=== PATIENT | male | born 1950 | race Caucasian/White ===

== ENCOUNTER 2017-08-10 16:16 | Emergency (ER) | payer MEDICARE, BC ==
[2017-08-10 16:20] VITALS: BP 131/80
[2017-08-10] MEDS ORDERED: Lidocaine 1% 20 ML MDV ONE (16:37)
[2017-08-10] MEDS ORDERED: Bacitracin/Neomycin/Polymyxin B Oint 0.9 GM U/D Packet ONE (16:47)
--- NOTE | 2017-08-10 16:51 | EDM.PDOC ---
ED HPI GENERAL MEDICAL PROBLEM - General Chief Complaint: Upper Extremity Injury/Pain Stated Complaint: "piece of wood in right hand" Time Seen by Provider: 08/10/17 16:40 Source of Information: Reports: Patient History Limitations: Reports: No Limitations - History of Present Illness INITIAL COMMENTS - FREE TEXT/NARRATIVE: Patient presents with concerns of a large sliver in his hand. Was working outside, caught the wood piece in his hand. Was able to remove a small portion but the remainder broke off. Is causing a mild amount of discomfort. Does believe his last tetanus was approximately 4-5 years ago. Onset: Today, Sudden Duration: Hour(s): Location: Reports: Upper Extremity, Right Quality: Reports: Throbbing Severity: Mild - Related Data Allergies Allergy/AdvReac Type Severity Reaction Status Date / Time amoxicillin Allergy Diarrhea Verified 08/10/17 16:20 azithromycin Allergy Rash Verified 08/10/17 16:20 cephalexin Allergy Diarrhea Verified 08/10/17 16:20 clavulanic acid Allergy Bleeding Verified 08/10/17 16:20 [From Augmentin] levofloxacin Allergy Muscle Verified 08/10/17 16:20 Weakness venlafaxine Allergy Chest Pain Verified 08/10/17 16:20 Home Meds: Home Meds Albuterol Sulfate [Proair Hfa] 2 puff INH DAILY PRN 07/30/16 [History] Allopurinol [Zyloprim] 300 mg PO DAILY 07/30/16 [History] Ezetimibe [Zetia] 10 mg PO DAILY 07/30/16 [History] Hydrochlorothiazide 25 mg PO ACBREAKFAST PRN 07/30/16 [History] Lisinopril 10 mg PO DAILY 07/30/16 [History] Olopatadine [Patanol 0.1% Ophth Soln] 1 drop EYEBOTH DAILY 07/30/16 [History] Past Medical History HEENT History: Reports: Other (See Below) Other HEENT History: DRY EYES Cardiovascular History: Reports: High Cholesterol, Hypertension Respiratory History: Reports: Asthma Musculoskeletal History: Reports: Gout Oncologic (Cancer) History: Reports: Prostate Dermatologic History: Reports: Eczema, Seborrheic Dermatitis - Past Surgical History HEENT Surgical History: Reports: Cataract Surgery Male Surgical History: Reports: Prostatectomy Social & Family History - Tobacco Use Smoking Status *Q: Never Smoker Second Hand Smoke Exposure: No - Caffeine Use Caffeine Use: Reports: Soda - Recreational Drug Use Recreational Drug Use: No Review of Systems - Review of Systems Review Of Systems: ROS reveals no pertinent complaints other than HPI. ED EXAM, GENERAL - Physical Exam Exam: See Below Exam Limited By: No Limitations General Appearance: Alert, WD/WN, No Apparent Distress Extremities: Other (Patient has palpable foreign object to thenar aspect of his right hand. Entrance and exit puncture wounds noted. Unable to retrieve the small piece from the exit area due to discomfort. Anesthesized with 2 ml of 1% lidocaine, small incision made with 11 blade and able to grasp and remove a 3 cm thick wood sliver from his hand. Did use a 20 g cannula to irrigate the wound with 5 ml of saline. Patient tolerated well.) Course - Vital Signs Last Recorded V/S: Last Vital Signs Temp 98.8 F 08/10/17 16:17 Pulse 96 08/10/17 16:17 Resp 18 08/10/17 16:17 BP 131/80 08/10/17 16:17 Pulse Ox 97 08/10/17 16:17 - Orders/Labs/Meds Meds: Medications Discontinued Medications Generic Name Dose Route Start Last Admin Trade Name Gary PRN Reason Stop Dose Admin Lidocaine HCl Confirm 08/10/17 16:37 08/10/17 16:37 Xylocaine 1% Administered 08/10/17 16:38 20 ml Dose Administration 20 ml .ROUTE .STK-MED ONE Neomycin/Polymyxin/Bacitracin 1 each 08/10/17 16:53 08/10/17 16:57 Triple Antibiotic Oint TOP 08/10/17 16:54 1 each ONETIME ONE Administration Neomycin/Polymyxin/Bacitracin Confirm 08/10/17 16:47 08/10/17 16:57 Triple Antibiotic Oint Administered 08/10/17 16:48 Not Given Dose 1 each .ROUTE .STK-MED ONE Departure - Departure Time of Disposition: 17:01 Disposition: Home, Self-Care 01 Condition: Good Clinical Impression: Foreign body in soft tissue - Discharge Information Referrals: PCP,None [Primary Care Provider] - Forms: ED Department Discharge Additional Instructions: 1. Soak hand in Epsom salt 2. Keep clean and dry 3. Cover with triple antibiotic ointment over the next 3 days 4. Watch for any signs of infection 5. Follow up with primary care provider as needed.
[2017-08-10] MEDS ORDERED: Bacitracin/Neomycin/Polymyxin B Oint 0.9 GM U/D Packet TOP ONE (16:53)
== END 2017-08-10 17:10 | disposition home or self-care (01) ==
LOC: CC.ED 16:16
DX: S60.551A Superficial foreign body of right hand, initial encounter (principal); I10 Essential (primary) hypertension; E78.00 Pure hypercholesterolemia, unspecified; J45.909 Unspecified asthma, uncomplicated; Z88.1 Allergy status to other antibiotic agents; Z88.8 Allergy status to other drugs, medicaments and biological substances; Z79.899 Other long term (current) drug therapy; Z90.89 Acquired absence of other organs; W45.8XXA Other foreign body or object entering through skin, initial encounter
CPT/HCPCS: 10120; 99282

== ENCOUNTER 2024-05-24 08:59 | Inpatient (IN) | payer MEDICARE, BC ==
[2024-05-24 09:28] LABS: BASOPHILS ABSOLUTE AUTO 0.04 10^3/uL (0.00-0.50); BASOPHILS PERCENT AUTO 0.2 % (0-1); EOSINOPHILS ABSOLUTE AUTO 0.14 10^3/uL (0.00-1.50); EOSINOPHILS PERCENT AUTO 0.6 % (0-6); HEMATOCRIT 41.7 % (42.0-52.0); HEMOGLOBIN 13.7 g/dL (14.0-18.0); IMMATURE GRAN ABSOLUTE AUTO 0.07 10^3/uL (0.00-0.49); IMMATURE GRAN PERCENT AUTO 0.3 % (0.0-4.9); LYMPHOCYTES ABSOLUTE AUTO 0.21 10^3/uL (0.60-5.00); MEAN CORPUSCULAR HEMOGLOBIN 30.8 pg (27.0-32.0); MEAN CORPUSCULAR HGB CONC 32.9 g/dL (32.0-36.0); MEAN CORPUSCULAR VOLUME 93.7 fL (83.0-97.0); MONOCYTES ABSOLUTE AUTO 1.35 10^3/uL (0.00-1.50); MONOCYTES PERCENT AUTO 6.2 % (0-10); NEUTROPHILS ABSOLUTE AUTO 19.81 x10^3/uL (1.80-8.00); NEUTROPHILS PERCENT AUTO 91.7 % (41-71); PLATELET COUNT,PLT 261 10^3/uL (150-400); RED BLOOD CELL COUNT 4.45 x10^6/uL (4.50-6.00)
[2024-05-24 09:34] LABS: WHITE BLOOD CELL COUNT,WBC 21.6 10^3/uL (4.0-11.0)
[2024-05-24 09:54] LABS: ALANINE AMINOTRANSFERASE,ALT 19 U/L (12-78); ALKALINE PHOSPHATASE 83 U/L (46-116); ASPARTATE AMNIOTRANSFERASE,AST 19 U/L (15-37); BILIRUBIN TOTAL 1.4 mg/dL (0.0-1.0); BLOOD UREA NITROGEN,BUN 13 mg/dL (7-18); C-REACTIVE PROTEIN 4.09 mg/dL (<=0.50); CALCIUM 8.8 mg/dL (8.4-10.1); CARBON DIOXIDE,CO2 25 mmol/L (21-32); CHLORIDE,CL 101 mEq/L (98-106); CREATININE 1.3 mg/dL (0.7-1.3); GLUCOSE RANDOM 114 mg/dL (75-99); POTASSIUM,K 3.7 mEq/L (3.5-5.0); PROTEIN TOTAL,TP 6.4 g/dL (6.4-8.2); SODIUM,NA 136 mEq/L (136-145)
[2024-05-24 09:56] LABS: ESTIMATED GFR 58 mL/min (>=60)
[2024-05-24 10:06] LABS: APPEARANCE,URINE SLIGHTLY CLOUDY (CLEAR); BILIRUBIN,URINE MODERATE (NEGATIVE); COLOR,URINE AMBER (YELLOW); GLUCOSE,URINE NEGATIVE (NEGATIVE); KETONES,URINE TRACE mg/dL (NEGATIVE); LEUKOCYTE ESTERASE,URINE LARGE (NEGATIVE); NITRITE,URINE POSITIVE (NEGATIVE); OCCULT BLOOD,URINE LARGE (NEGATIVE); PROTEIN,URINE 100 mg/dL (NEGATIVE)
[2024-05-24 10:15] LABS: BACTERIA,URINE FEW /HPF (NOT SEEN); EPITHELIAL CELLS,URINE NOT SEEN /HPF (NOT SEEN); MUCUS,URINE NOT SEEN /HPF (NOT SEEN); RBC,URINE 40-50 /HPF (0-5); WBC,URINE 50-75 /HPF (0-5)
[2024-05-24] MEDS: Sodium Chloride 0.9% 1,000 ML IV ONE ×2 (10:34→10:42)
[2024-05-24] MEDS: Sodium Chloride 0.9% 1,000 ML ONE (10:41)
[2024-05-24] MEDS: Iopamidol 755 Mg/ML 100 ML Bottle IVPUSH ONE (11:03)
[2024-05-24] MEDS: Levofloxacin/Dextrose 5%-Water 500 MG in Premix Bag 1 BAG IV SCH (11:47)
[2024-05-24] MEDS ORDERED: Ondansetron 4 MG Tab.DIS PO PRN (16:22)
[2024-05-24] MEDS ORDERED: Sodium Chloride 0.9% 10 ML Syringe FLUSH PRN (16:22)
[2024-05-24] MEDS ORDERED: Acetaminophen 325 MG Tab PO PRN (16:22)
[2024-05-24] MEDS ORDERED: Ondansetron 4 MG/2 ML SDV IV PRN (16:22)
[2024-05-24] MEDS: Sodium Chloride 0.9% 1,000 ML IV SCH (17:13)
[2024-05-24] MEDS: Oxyquinoline/Emollient 0.3% Oint 4 OZ Canister TOP SCH (17:16)
[2024-05-24] MEDS: Nystatin Crm 30 GM Tube TOP SCH (17:17)
[2024-05-24] MEDS: Sucralfate 1 GM Tab PO SCH (19:40)
[2024-05-24] MEDS: Famotidine 20 MG Tab PO SCH (19:40)
[2024-05-24] MEDS: Loratadine 10 MG Tab PO SCH (19:40)
[2024-05-24] MEDS: Enoxaparin 40 MG/0.4 ML Syringe SUBCUT SCH (19:41)
[2024-05-25] MEDS: Pantoprazole 40 MG Tab.CR PO SCH (06:01)
[2024-05-25 07:17] LABS: BASOPHILS ABSOLUTE AUTO 0.03 10^3/uL (0.00-0.50); BASOPHILS PERCENT AUTO 0.4 % (0-1); EOSINOPHILS ABSOLUTE AUTO 0.74 10^3/uL (0.00-1.50); EOSINOPHILS PERCENT AUTO 9.4 % (0-6); HEMATOCRIT 36.9 % (42.0-52.0); IMMATURE GRAN ABSOLUTE AUTO 0.02 10^3/uL (0.00-0.49); IMMATURE GRAN PERCENT AUTO 0.3 % (0.0-4.9); LYMPHOCYTES ABSOLUTE AUTO 0.51 10^3/uL (0.60-5.00); LYMPHOCYTES PERCENT AUTO 6.5 % (24-44); MEAN CORPUSCULAR HEMOGLOBIN 30.8 pg (27.0-32.0); MEAN CORPUSCULAR HGB CONC 32.5 g/dL (32.0-36.0); MEAN CORPUSCULAR VOLUME 94.9 fL (83.0-97.0); MONOCYTES ABSOLUTE AUTO 0.94 10^3/uL (0.00-1.50); NEUTROPHILS ABSOLUTE AUTO 5.62 x10^3/uL (1.80-8.00); NEUTROPHILS PERCENT AUTO 71.4 % (41-71); PLATELET COUNT,PLT 232 10^3/uL (150-400); RED BLOOD CELL COUNT 3.89 x10^6/uL (4.50-6.00); WHITE BLOOD CELL COUNT,WBC 7.9 10^3/uL (4.0-11.0)
[2024-05-25] MEDS: Allopurinol 300 MG Tab PO SCH (07:57)
[2024-05-25] MEDS: Metoprolol Succinate 25 MG Tab.ER PO SCH (07:57)
[2024-05-25] MEDS: Potassium Chloride 20 MEQ Tab.ER PO SCH (07:57)
[2024-05-25] MEDS: Lisinopril 10 MG Tab PO SCH (07:57)
[2024-05-25] MEDS: Donepezil 5 MG Tab PO SCH (07:57)
[2024-05-25] MEDS: Furosemide 40 MG Tab PO SCH (07:58)
[2024-05-25 08:17] LABS: ALBUMIN 2.3 g/dL (3.4-5.0); BILIRUBIN TOTAL 0.6 mg/dL (0.0-1.0); C-REACTIVE PROTEIN 6.75 mg/dL (<=0.50); CALCIUM 8.4 mg/dL (8.4-10.1); EST CRCL DRUG DOSING (CG) 63.65 mL/min; POTASSIUM,K 3.8 mEq/L (3.5-5.0); PROTEIN TOTAL,TP 5.4 g/dL (6.4-8.2)
[2024-05-25] MEDS: Sucralfate 1 GM Tab PO SCH (11:22)
[2024-05-26 07:27] LABS: BASOPHILS ABSOLUTE AUTO 0.04 10^3/uL (0.00-0.50); BASOPHILS PERCENT AUTO 0.4 % (0-1); EOSINOPHILS ABSOLUTE AUTO 0.73 10^3/uL (0.00-1.50); EOSINOPHILS PERCENT AUTO 7.8 % (0-6); HEMATOCRIT 39.6 % (42.0-52.0); HEMOGLOBIN 13.1 g/dL (14.0-18.0); IMMATURE GRAN ABSOLUTE AUTO 0.04 10^3/uL (0.00-0.49); IMMATURE GRAN PERCENT AUTO 0.4 % (0.0-4.9); LYMPHOCYTES ABSOLUTE AUTO 0.55 10^3/uL (0.60-5.00); LYMPHOCYTES PERCENT AUTO 5.9 % (24-44); MEAN CORPUSCULAR HEMOGLOBIN 30.7 pg (27.0-32.0); MEAN CORPUSCULAR HGB CONC 33.1 g/dL (32.0-36.0); MEAN CORPUSCULAR VOLUME 92.7 fL (83.0-97.0); MONOCYTES ABSOLUTE AUTO 1.02 10^3/uL (0.00-1.50); NEUTROPHILS ABSOLUTE AUTO 6.92 x10^3/uL (1.80-8.00); NEUTROPHILS PERCENT AUTO 74.5 % (41-71); PLATELET COUNT,PLT 264 10^3/uL (150-400); RED BLOOD CELL COUNT 4.27 x10^6/uL (4.50-6.00); WHITE BLOOD CELL COUNT,WBC 9.3 10^3/uL (4.0-11.0)
[2024-05-26] MEDS: Metoprolol Succinate 25 MG Tab.ER PO SCH (07:40)
[2024-05-26] MEDS: Lisinopril 10 MG Tab PO SCH (07:42)
[2024-05-26] MEDS ORDERED: FLUTICASONE PROPIONATE INH SCH (08:00)
[2024-05-26 11:39] VITALS: BP 111/77; PULSE 87
[2024-05-26 15:45] LABS: ALBUMIN 2.6 g/dL (3.4-5.0); BILIRUBIN TOTAL 0.6 mg/dL (0.0-1.0); C-REACTIVE PROTEIN 2.74 mg/dL (<=0.50); CALCIUM 8.9 mg/dL (8.4-10.1); CREATININE 1.1 mg/dL (0.7-1.3); EST CRCL DRUG DOSING (CG) 57.86 mL/min; POTASSIUM,K 3.7 mEq/L (3.5-5.0); PROTEIN TOTAL,TP 5.8 g/dL (6.4-8.2)
== END 2024-05-26 13:55 | disposition home or self-care (01) | DRG 689 ==
LOC: CC.ED 08:59 → CC.MS 11:59 → UNDOADMIN 12:47 → CC.MS 12:47
PROVIDERS: ADMIT Physician Assistant Medical; ATTEND Physician Assistant Medical
DX: N39.0 Urinary tract infection, site not specified (principal); R00.0 Tachycardia, unspecified; J18.9 Pneumonia, unspecified organism; I10 Essential (primary) hypertension; E78.00 Pure hypercholesterolemia, unspecified; J45.909 Unspecified asthma, uncomplicated; M10.9 Gout, unspecified; D72.829 Elevated white blood cell count, unspecified; B96.89 Other specified bacterial agents as the cause of diseases classified elsewhere; Z88.0 Allergy status to penicillin; Z88.1 Allergy status to other antibiotic agents; Z88.8 Allergy status to other drugs, medicaments and biological substances; Z98.49 Cataract extraction status, unspecified eye; Z90.79 Acquired absence of other genital organ(s); Z79.899 Other long term (current) drug therapy
CPT/HCPCS: 36415; 71045; 71275; 80053; 81001; 83605; 84484; 85025; 85379; 86140; 87040; 87086; 87088; 87186; 93005; 93010; 96361; 96365; 99223; 99233; 99238; 99285-25; A9270-GY; J1650; J1956; J7030; Q9967

== ENCOUNTER 2024-08-24 07:39 | Emergency (ER) | payer MEDICARE, BC ==
[2024-08-24 08:10] LABS: BASOPHILS ABSOLUTE AUTO 0.05 10^3/uL (0.00-0.50); BASOPHILS PERCENT AUTO 0.7 % (0-1); EOSINOPHILS ABSOLUTE AUTO 0.61 10^3/uL (0.00-1.50); EOSINOPHILS PERCENT AUTO 8.6 % (0-6); HEMATOCRIT 43.3 % (42.0-52.0); HEMOGLOBIN 14.3 g/dL (14.0-18.0); IMMATURE GRAN ABSOLUTE AUTO 0.01 10^3/uL (0.00-0.49); IMMATURE GRAN PERCENT AUTO 0.1 % (0.0-4.9); LYMPHOCYTES ABSOLUTE AUTO 0.89 10^3/uL (0.60-5.00); LYMPHOCYTES PERCENT AUTO 12.5 % (24-44); MEAN CORPUSCULAR HEMOGLOBIN 29.7 pg (27.0-32.0); MEAN CORPUSCULAR VOLUME 89.8 fL (83.0-97.0); MONOCYTES ABSOLUTE AUTO 0.82 10^3/uL (0.00-1.50); MONOCYTES PERCENT AUTO 11.5 % (0-10); NEUTROPHILS ABSOLUTE AUTO 4.72 x10^3/uL (1.80-8.00); NEUTROPHILS PERCENT AUTO 66.6 % (41-71); PLATELET COUNT,PLT 257 10^3/uL (150-400); RED BLOOD CELL COUNT 4.82 x10^6/uL (4.50-6.00); WHITE BLOOD CELL COUNT,WBC 7.1 10^3/uL (4.0-11.0)
[2024-08-24 08:22] LABS: INR 1.11 (0.92-1.18); PROTHROMBIN TIME 11.6 SEC (9.3-11.3)
[2024-08-24 08:25] LABS: ALBUMIN 3.6 g/dL (3.4-5.0); CALCIUM 9.7 mg/dL (8.4-10.1); CREATININE 1.2 mg/dL (0.7-1.3); EST CRCL DRUG DOSING (CG) 56.61 mL/min; MAGNESIUM 1.9 mg/dL (1.8-2.4); POTASSIUM,K 3.7 mEq/L (3.5-5.0)
[2024-08-24] MEDS: Aspirin 81 MG Tab.Chew PO ONE (09:15)
[2024-08-24 09:32] VITALS: BP 102/69; PULSE 84
[2024-08-24] MEDS: Heparin Sodium 5,000 Units/ML Vial IVPUSH ONE (09:58)
[2024-08-24] MEDS: Heparin Sodium/0.45% NaCl 500 ML IV SCH (10:01)
== END 2024-08-24 10:35 ==
LOC: CC.ED 07:39
DX: I21.4 Non-ST elevation (NSTEMI) myocardial infarction (principal); I25.9 Chronic ischemic heart disease, unspecified; R79.89 Other specified abnormal findings of blood chemistry; E78.00 Pure hypercholesterolemia, unspecified; I10 Essential (primary) hypertension; J45.909 Unspecified asthma, uncomplicated; Z79.82 Long term (current) use of aspirin; Z79.899 Other long term (current) drug therapy; Z88.1 Allergy status to other antibiotic agents; Z88.8 Allergy status to other drugs, medicaments and biological substances
CPT/HCPCS: 36415; 71046; 80053; 83690; 83735; 83880; 84484; 85025; 85610; 85730; 86140; 93005; 93010; 96365; 99284; 99285-25; A9270-GY; J1644

== ENCOUNTER 2024-08-30 08:34 | Emergency (ER) | payer MEDICARE, BC ==
[2024-08-30 09:05] VITALS: BP 133/70; PULSE 97
[2024-08-30] MEDS ORDERED: Bacitracin/Neomycin/Polymyxin B Oint 0.9 GM U/D Packet TOP ONE (09:10)
== END 2024-08-30 09:21 | disposition home or self-care (01) ==
LOC: CC.ED 08:34
DX: S40.022A Contusion of left upper arm, initial encounter (principal); S40.021A Contusion of right upper arm, initial encounter; S51.011A Laceration without foreign body of right elbow, initial encounter; E78.00 Pure hypercholesterolemia, unspecified; I10 Essential (primary) hypertension; J45.909 Unspecified asthma, uncomplicated; Z79.82 Long term (current) use of aspirin; Z79.899 Other long term (current) drug therapy; Z88.1 Allergy status to other antibiotic agents; Z88.0 Allergy status to penicillin; Z88.8 Allergy status to other drugs, medicaments and biological substances; W31.89XA Contact with other specified machinery, initial encounter
CPT/HCPCS: 99283; 99284

== ENCOUNTER 2024-09-03 18:35 | Emergency (ER) | payer MEDICARE, BC ==
[2024-09-03] MEDS: Sodium Chloride 0.9% 1,000 ML IV ONE ×3 (19:06→22:22)
[2024-09-03] MEDS: Ondansetron 4 MG/2 ML SDV IVPUSH STA (19:07)
[2024-09-03 19:10] LABS: BASOPHILS ABSOLUTE AUTO 0.02 10^3/uL (0.00-0.50); BASOPHILS PERCENT AUTO 0.1 % (0-1); EOSINOPHILS PERCENT AUTO 1.5 % (0-6); HEMATOCRIT 43.1 % (42.0-52.0); HEMOGLOBIN 14.2 g/dL (14.0-18.0); IMMATURE GRAN ABSOLUTE AUTO 0.02 10^3/uL (0.00-0.49); IMMATURE GRAN PERCENT AUTO 0.1 % (0.0-4.9); LYMPHOCYTES ABSOLUTE AUTO 0.17 10^3/uL (0.60-5.00); LYMPHOCYTES PERCENT AUTO 1.3 % (24-44); MEAN CORPUSCULAR HEMOGLOBIN 29.8 pg (27.0-32.0); MEAN CORPUSCULAR HGB CONC 32.9 g/dL (32.0-36.0); MEAN CORPUSCULAR VOLUME 90.5 fL (83.0-97.0); MONOCYTES ABSOLUTE AUTO 0.39 10^3/uL (0.00-1.50); MONOCYTES PERCENT AUTO 2.9 % (0-10); NEUTROPHILS ABSOLUTE AUTO 12.68 x10^3/uL (1.80-8.00); NEUTROPHILS PERCENT AUTO 94.1 % (41-71); PLATELET COUNT,PLT 248 10^3/uL (150-400); RED BLOOD CELL COUNT 4.76 x10^6/uL (4.50-6.00); WHITE BLOOD CELL COUNT,WBC 13.5 10^3/uL (4.0-11.0)
[2024-09-03 19:34] LABS: ALANINE AMINOTRANSFERASE,ALT 19 U/L (12-78); ALBUMIN 3.3 g/dL (3.4-5.0); ALKALINE PHOSPHATASE 119 U/L (46-116); ASPARTATE AMNIOTRANSFERASE,AST 23 U/L (15-37); BILIRUBIN TOTAL 1.2 mg/dL (0.0-1.0); BLOOD UREA NITROGEN,BUN 9 mg/dL (7-18); CALCIUM 9.4 mg/dL (8.4-10.1); CARBON DIOXIDE,CO2 29 mmol/L (21-32); CHLORIDE,CL 105 mEq/L (98-106); CREATININE 1.3 mg/dL (0.7-1.3); GLUCOSE RANDOM 120 mg/dL (75-99); LIPASE 37 U/L (16-77); MAGNESIUM 1.4 mg/dL (1.8-2.4); POTASSIUM,K 3.7 mEq/L (3.5-5.0); PRO B-TYPE NATRIUR PEPT,BNPPRO 781 pg/mL (0-1000); PROTEIN TOTAL,TP 6.9 g/dL (6.4-8.2); SODIUM,NA 142 mEq/L (136-145)
[2024-09-03 19:35] LABS: C-REACTIVE PROTEIN 0.64 mg/dL (<=0.50); ESTIMATED GFR 58 mL/min (>=60); ETHANOL BLOOD MEDICAL < 3 mg/dL (0-3)
[2024-09-03 19:52] LABS: APPEARANCE,URINE CLEAR (CLEAR); BILIRUBIN,URINE NEGATIVE (NEGATIVE); COLOR,URINE YELLOW (YELLOW); GLUCOSE,URINE NEGATIVE (NEGATIVE); KETONES,URINE NEGATIVE (NEGATIVE); LEUKOCYTE ESTERASE,URINE TRACE (NEGATIVE); NITRITE,URINE NEGATIVE (NEGATIVE); OCCULT BLOOD,URINE NEGATIVE (NEGATIVE); PROTEIN,URINE 30 mg/dL (NEGATIVE); UROBILINOGEN,URINE 0.2 EU/dL (0.2-1.0)
[2024-09-03] MEDS: Metoprolol Tartrate 5 MG/5 ML SDV IVPUSH ONE ×2 (19:59→20:12)
[2024-09-03] MEDS: Magnesium Sulfate/Water Premix 2 GM in Premix Bag 1 BAG IV ONE (20:01)
[2024-09-03 20:02] LABS: RBC,URINE 0-5 /HPF (0-5); WBC,URINE 0-5 /HPF (0-5)
[2024-09-03 20:03] LABS: AMPHETAMINES,URINE NEGATIVE (NEGATIVE); BARBITURATES,URINE NEGATIVE (NEGATIVE); BENZODIAZEPINE,URINE NEGATIVE (NEGATIVE); MDMA (ECSTASY), URINE NEGATIVE (NEGATIVE); METHADONE,URINE NEGATIVE (NEGATIVE); METHAMPHETAMINES,URINE NEGATIVE (NEGATIVE); OPIATES,URINE NEGATIVE (NEGATIVE); OXYCODONE,URINE NEGATIVE (NEGATIVE); PHENCYCLIDINE,URINE NEGATIVE (NEGATIVE); TCA,URINE NEGATIVE (NEGATIVE)
[2024-09-03] MEDS: cefTRIAXone 2 GM Vial IVPUSH SCH (20:07)
[2024-09-03] MEDS: Sodium Chloride 0.9% 1,000 ML ONE (20:44)
[2024-09-03] MEDS: Iopamidol 755 Mg/ML 100 ML Bottle IVPUSH ONE (20:48)
[2024-09-03 23:58] VITALS: BP 85/46; PULSE 148
== END 2024-09-03 23:59 ==
LOC: CC.ED 18:35 → CC.MS 22:03 → UNDOADMIN 22:03
DX: I47.10 Supraventricular tachycardia, unspecified (principal); D72.829 Elevated white blood cell count, unspecified; E83.42 Hypomagnesemia; E78.00 Pure hypercholesterolemia, unspecified; I10 Essential (primary) hypertension; J45.909 Unspecified asthma, uncomplicated; Z79.899 Other long term (current) drug therapy; Z79.82 Long term (current) use of aspirin; Z88.0 Allergy status to penicillin; Z88.1 Allergy status to other antibiotic agents; Z88.8 Allergy status to other drugs, medicaments and biological substances
CPT/HCPCS: 36415; 71045; 74177; 80053; 80305; 80307; 81001; 83605; 83690; 83735; 83880; 84484; 85025; 85730; 86140; 87040; 93005; 96361; 96365; 96375; 99285; J0696; J2405; J3475; J3490; J7030; Q9967; U0002

== ENCOUNTER 2024-09-12 12:37 | Observation (INO) | payer MEDICARE, BC ==
[2024-09-12] MEDS: Adenosine 6 MG/2 ML SDV IVPUSH ONE (13:00)
[2024-09-12 13:24] LABS: BASOPHILS ABSOLUTE AUTO 0.05 10^3/uL (0.00-0.50); BASOPHILS PERCENT AUTO 0.3 % (0-1); EOSINOPHILS ABSOLUTE AUTO 0.17 10^3/uL (0.00-1.50); EOSINOPHILS PERCENT AUTO 1.1 % (0-6); HEMATOCRIT 42.7 % (42.0-52.0); HEMOGLOBIN 14.2 g/dL (14.0-18.0); IMMATURE GRAN ABSOLUTE AUTO 0.03 10^3/uL (0.00-0.49); IMMATURE GRAN PERCENT AUTO 0.2 % (0.0-4.9); LYMPHOCYTES ABSOLUTE AUTO 0.48 10^3/uL (0.60-5.00); LYMPHOCYTES PERCENT AUTO 3.2 % (24-44); MEAN CORPUSCULAR HEMOGLOBIN 29.8 pg (27.0-32.0); MEAN CORPUSCULAR HGB CONC 33.3 g/dL (32.0-36.0); MEAN CORPUSCULAR VOLUME 89.7 fL (83.0-97.0); MONOCYTES ABSOLUTE AUTO 1.31 10^3/uL (0.00-1.50); MONOCYTES PERCENT AUTO 8.7 % (0-10); NEUTROPHILS ABSOLUTE AUTO 12.95 x10^3/uL (1.80-8.00); NEUTROPHILS PERCENT AUTO 86.5 % (41-71); PLATELET COUNT,PLT 334 10^3/uL (150-400); RED BLOOD CELL COUNT 4.76 x10^6/uL (4.50-6.00)
[2024-09-12 13:41] LABS: ALBUMIN 3.6 g/dL (3.4-5.0); BILIRUBIN TOTAL 0.8 mg/dL (0.0-1.0); CALCIUM 9.7 mg/dL (8.4-10.1); CREATININE 1.2 mg/dL (0.7-1.3); EST CRCL DRUG DOSING (CG) 63.74 mL/min; MAGNESIUM 1.6 mg/dL (1.8-2.4); POTASSIUM,K 4.2 mEq/L (3.5-5.0); PROTEIN TOTAL,TP 7.2 g/dL (6.4-8.2)
[2024-09-12 13:42] LABS: APPEARANCE,URINE CLEAR (CLEAR); BILIRUBIN,URINE NEGATIVE (NEGATIVE); COLOR,URINE YELLOW (YELLOW); GLUCOSE,URINE NEGATIVE (NEGATIVE); KETONES,URINE NEGATIVE (NEGATIVE); LEUKOCYTE ESTERASE,URINE NEGATIVE (NEGATIVE); NITRITE,URINE NEGATIVE (NEGATIVE); OCCULT BLOOD,URINE TRACE-INTACT (NEGATIVE); PH,URINE 5.5 (4.5-8.0); PROTEIN,URINE NEGATIVE (NEGATIVE); UROBILINOGEN,URINE 0.2 EU/dL (0.2-1.0)
[2024-09-12 13:54] LABS: INR 1.09 (0.92-1.18); PROTHROMBIN TIME 11.4 SEC (9.3-11.3); PTT,PARTIAL THROMBOPLSTIN TIME 26.5 SEC (20.0-30.0)
[2024-09-12] MEDS: Adenosine 6 MG/2 ML SDV ONE (13:54)
[2024-09-12] MEDS: Sodium Chloride 0.9% 1,000 ML ONE (13:54)
[2024-09-12] MEDS: Sodium Chloride 0.9% 1,000 ML IV ONE (13:56)
[2024-09-12 13:57] LABS: RBC,URINE 0-5 /HPF (0-5); WBC,URINE 0-5 /HPF (0-5)
[2024-09-12] MEDS: Diltiazem 25 MG/5 ML SDV IVPUSH ONE (14:40)
[2024-09-12] MEDS ORDERED: Sodium Chloride 0.9% 10 ML Syringe FLUSH PRN (17:01)
[2024-09-12] MEDS ORDERED: Ondansetron 4 MG Tab.DIS PO PRN (17:01)
[2024-09-12] MEDS ORDERED: Acetaminophen 325 MG Tab PO PRN (17:01)
[2024-09-12] MEDS ORDERED: Ondansetron 4 MG/2 ML SDV IV PRN (17:01)
[2024-09-12] MEDS ORDERED: Albuterol 6.7 GM Inhaler INH PRN (17:01)
[2024-09-12] MEDS: Metoprolol Tartrate 25 MG Tab PO ONE (17:07)
[2024-09-12] MEDS ORDERED: Meclizine 12.5 MG Tab PO PRN (17:12)
[2024-09-12] MEDS: Memantine 10 MG Tab PO SCH (19:58)
[2024-09-12] MEDS: Sucralfate 1 GM Tab PO SCH (19:58)
[2024-09-12] MEDS: Famotidine 20 MG Tab PO SCH (19:58)
[2024-09-12] MEDS: Donepezil 5 MG Tab PO SCH (19:58)
[2024-09-12] MEDS: atorvaSTATin 10 MG Tab PO SCH (19:58)
[2024-09-12] MEDS ORDERED: Non-Formulary Medication 1 Each (Cetirizine [Zyrtec] 10 MG Tablet) PO SCH (20:00)
[2024-09-13] MEDS ORDERED: Non-Formulary Medication 1 Each (Olopatadine [Pataday 0.2% Ophth Soln] 2.5 ML Bottle) OP SCH (08:00)
[2024-09-13 08:01] LABS: BASOPHILS ABSOLUTE AUTO 0.05 10^3/uL (0.00-0.50); BASOPHILS PERCENT AUTO 0.5 % (0-1); EOSINOPHILS ABSOLUTE AUTO 0.35 10^3/uL (0.00-1.50); EOSINOPHILS PERCENT AUTO 3.6 % (0-6); HEMATOCRIT 42.3 % (42.0-52.0); HEMOGLOBIN 13.8 g/dL (14.0-18.0); IMMATURE GRAN ABSOLUTE AUTO 0.03 10^3/uL (0.00-0.49); IMMATURE GRAN PERCENT AUTO 0.3 % (0.0-4.9); LYMPHOCYTES ABSOLUTE AUTO 0.68 10^3/uL (0.60-5.00); MEAN CORPUSCULAR HEMOGLOBIN 29.5 pg (27.0-32.0); MEAN CORPUSCULAR HGB CONC 32.6 g/dL (32.0-36.0); MEAN CORPUSCULAR VOLUME 90.4 fL (83.0-97.0); MONOCYTES ABSOLUTE AUTO 1.11 10^3/uL (0.00-1.50); MONOCYTES PERCENT AUTO 11.5 % (0-10); NEUTROPHILS ABSOLUTE AUTO 7.45 x10^3/uL (1.80-8.00); NEUTROPHILS PERCENT AUTO 77.1 % (41-71); PLATELET COUNT,PLT 313 10^3/uL (150-400); RED BLOOD CELL COUNT 4.68 x10^6/uL (4.50-6.00); WHITE BLOOD CELL COUNT,WBC 9.7 10^3/uL (4.0-11.0)
[2024-09-13] MEDS: Metoprolol Succinate 25 MG Tab.ER PO SCH (08:14)
[2024-09-13 08:15] LABS: ALBUMIN 3.2 g/dL (3.4-5.0); CALCIUM 9.4 mg/dL (8.4-10.1); CREATININE 1.2 mg/dL (0.7-1.3); EST CRCL DRUG DOSING (CG) 63.74 mL/min; POTASSIUM,K 4.2 mEq/L (3.5-5.0); PROTEIN TOTAL,TP 6.7 g/dL (6.4-8.2)
[2024-09-13] MEDS: Aspirin 81 MG Tab.EC PO SCH (08:15)
[2024-09-13] MEDS: Furosemide 40 MG Tab PO SCH (08:15)
[2024-09-13] MEDS: Magnesium Oxide 400 MG Tab PO SCH (08:16)
[2024-09-13] MEDS: Potassium Chloride 20 MEQ Tab.ER PO SCH (08:16)
[2024-09-13] MEDS: Clopidogrel 75 MG Tab PO SCH (08:16)
[2024-09-13] MEDS: Allopurinol 300 MG Tab PO SCH (08:16)
[2024-09-13 08:22] VITALS: BP 93/63; PULSE 73
[2024-09-13] MEDS: Lisinopril 10 MG Tab PO SCH (08:33)
== END 2024-09-13 11:30 | disposition home or self-care (01) ==
LOC: CC.ED 12:37 → CC.MS 15:15 → UNDOADMOB 15:51 → CC.MS 15:51 → UNDODISOB 09-13 11:30
PROVIDERS: ADMIT Physician Assistant Medical; ATTEND Physician Assistant Medical
DX: R42 Dizziness and giddiness (principal); I47.10 Supraventricular tachycardia, unspecified; Z79.02 Long term (current) use of antithrombotics/antiplatelets; Z79.899 Other long term (current) drug therapy; Z79.82 Long term (current) use of aspirin; Z88.0 Allergy status to penicillin; Z88.1 Allergy status to other antibiotic agents; Z98.49 Cataract extraction status, unspecified eye; Z90.49 Acquired absence of other specified parts of digestive tract; Z98.890 Other specified postprocedural states
CPT/HCPCS: 36415; 71045; 80053; 81001; 83735; 84484; 85025; 85610; 85730; 93005; 96361; 96374; 96375; 99223; 99239; 99285; A9270; G0378; J0153; J3490; J7030; 93010

== ENCOUNTER 2025-04-29 10:25 | Inpatient (IN) | payer MEDICARE, BC ==
[2025-04-29] MEDS ORDERED: Sodium Chloride 0.9% 10 ML Syringe FLUSH PRN (11:09)
[2025-04-29] MEDS ORDERED: Ondansetron 4 MG Tab.DIS PO PRN (11:09)
[2025-04-29] MEDS ORDERED: Ondansetron 4 MG/2 ML SDV IV PRN (11:09)
[2025-04-29] MEDS ORDERED: Meclizine 12.5 MG Tab PO PRN (12:46)
[2025-04-29] MEDS: Sodium Chloride 0.9% 1,000 ML IV SCH ×2 (13:00→14:17)
[2025-04-29] MEDS: ceFAZolin 2 GM Vial IVPUSH SCH (13:00)
[2025-04-29] MEDS: Acetaminophen 325 MG Tab PO PRN (15:49)
[2025-04-29] MEDS: Ibuprofen 200 MG Tab PO ONE (18:07)
[2025-04-29] MEDS: Enoxaparin 40 MG/0.4 ML Syringe SUBCUT SCH (19:50)
[2025-04-29] MEDS: atorvaSTATin 20 MG Tab PO SCH (19:50)
[2025-04-29] MEDS ORDERED: Famotidine 20 MG Tab PO SCH (20:00)
[2025-04-29] MEDS ORDERED: Non-Formulary Medication 1 Each (Memantine Hcl [Memantine Hcl] 5 MG Tablet) PO SCH (20:00)
[2025-04-29] MEDS: Sucralfate 1 GM Tab PO SCH (20:34)
[2025-04-29] MEDS: VANCOmycin 1 GM/200 ML 1 GM in Premix Bag 1 BAG IV SCH (20:34)
[2025-04-30] MEDS: Metoprolol Succinate 100 MG Tab.ER PO SCH (07:55)
[2025-04-30] MEDS: Donepezil 5 MG Tab PO SCH (07:55)
[2025-04-30 07:56] LABS: ALBUMIN 2.5 g/dL (3.4-5.0); BILIRUBIN TOTAL 0.9 mg/dL (0.0-1.0); C-REACTIVE PROTEIN 16.4 mg/dL (<=0.50); CALCIUM 8.4 mg/dL (8.4-10.1); CREATININE 1.3 mg/dL (0.7-1.3); EST CRCL DRUG DOSING (CG) 41.74 mL/min; POTASSIUM,K 3.6 mEq/L (3.5-5.0); PROTEIN TOTAL,TP 5.9 g/dL (6.4-8.2)
[2025-04-30 07:57] LABS: BASOPHILS ABSOLUTE AUTO 0.01 10^3/uL (0.00-0.50); BASOPHILS PERCENT AUTO 0.1 % (0-1); EOSINOPHILS ABSOLUTE AUTO 0.11 10^3/uL (0.00-1.50); HEMATOCRIT 39.9 % (42.0-52.0); HEMOGLOBIN 13.2 g/dL (14.0-18.0); IMMATURE GRAN ABSOLUTE AUTO 0.02 10^3/uL (0.00-0.49); IMMATURE GRAN PERCENT AUTO 0.2 % (0.0-4.9); LYMPHOCYTES ABSOLUTE AUTO 0.42 10^3/uL (0.60-5.00); LYMPHOCYTES PERCENT AUTO 3.7 % (24-44); MEAN CORPUSCULAR HEMOGLOBIN 30.9 pg (27.0-32.0); MEAN CORPUSCULAR HGB CONC 33.1 g/dL (32.0-36.0); MEAN CORPUSCULAR VOLUME 93.4 fL (83.0-97.0); MONOCYTES PERCENT AUTO 8.9 % (0-10); NEUTROPHILS ABSOLUTE AUTO 9.67 x10^3/uL (1.80-8.00); NEUTROPHILS PERCENT AUTO 86.1 % (41-71); PLATELET COUNT,PLT 124 10^3/uL (150-400); RED BLOOD CELL COUNT 4.27 x10^6/uL (4.50-6.00); WHITE BLOOD CELL COUNT,WBC 11.2 10^3/uL (4.0-11.0)
[2025-04-30] MEDS: Aspirin 81 MG Tab.EC PO SCH (07:57)
[2025-04-30] MEDS: Potassium Chloride 20 MEQ Tab.ER PO SCH (07:57)
[2025-04-30] MEDS: Furosemide 40 MG Tab PO SCH (07:57)
[2025-04-30] MEDS: Trospium 20 MG Tab PO SCH (07:57)
[2025-04-30] MEDS: Clopidogrel 75 MG Tab PO SCH (07:57)
[2025-04-30] MEDS ORDERED: Non-Formulary Medication 1 Each (Olopatadine 2.5 ML Bottle) OP SCH (08:00)
[2025-04-30] MEDS: Nystatin Crm 30 GM Tube TOP SCH (12:22)
[2025-04-30] MEDS: VANCOmycin 1.5 GM/300 ML 1.5 GM in Premix Bag 1 BAG IV SCH (12:22)
[2025-04-30] MEDS: Fluconazole 100 MG Tab PO SCH (12:28)
[2025-05-01] MEDS: Lactobacillus Rhamnosus GG (Probiotic) Cap PO SCH (07:24)
[2025-05-01 07:40] LABS: BASOPHILS ABSOLUTE AUTO 0.02 10^3/uL (0.00-0.50); BASOPHILS PERCENT AUTO 0.3 % (0-1); EOSINOPHILS ABSOLUTE AUTO 0.32 10^3/uL (0.00-1.50); EOSINOPHILS PERCENT AUTO 4.2 % (0-6); HEMATOCRIT 35.9 % (42.0-52.0); HEMOGLOBIN 12.1 g/dL (14.0-18.0); IMMATURE GRAN ABSOLUTE AUTO 0.02 10^3/uL (0.00-0.49); IMMATURE GRAN PERCENT AUTO 0.3 % (0.0-4.9); LYMPHOCYTES ABSOLUTE AUTO 0.51 10^3/uL (0.60-5.00); LYMPHOCYTES PERCENT AUTO 6.6 % (24-44); MEAN CORPUSCULAR HGB CONC 33.7 g/dL (32.0-36.0); MEAN CORPUSCULAR VOLUME 92.1 fL (83.0-97.0); MONOCYTES ABSOLUTE AUTO 1.14 10^3/uL (0.00-1.50); MONOCYTES PERCENT AUTO 14.8 % (0-10); NEUTROPHILS ABSOLUTE AUTO 5.69 x10^3/uL (1.80-8.00); NEUTROPHILS PERCENT AUTO 73.8 % (41-71); PLATELET COUNT,PLT 122 10^3/uL (150-400); WHITE BLOOD CELL COUNT,WBC 7.7 10^3/uL (4.0-11.0)
[2025-05-01 07:57] LABS: ALBUMIN 2.2 g/dL (3.4-5.0); BILIRUBIN TOTAL 0.4 mg/dL (0.0-1.0); C-REACTIVE PROTEIN 8.95 mg/dL (<=0.50); CREATININE 1.1 mg/dL (0.7-1.3); EST CRCL DRUG DOSING (CG) 49.33 mL/min; POTASSIUM,K 3.8 mEq/L (3.5-5.0); PROTEIN TOTAL,TP 5.6 g/dL (6.4-8.2)
[2025-05-02 07:32] VITALS: BP 101/56; PULSE 83
[2025-05-02 08:03] LABS: ALBUMIN 2.3 g/dL (3.4-5.0); BILIRUBIN TOTAL 0.4 mg/dL (0.0-1.0); C-REACTIVE PROTEIN 6.45 mg/dL (<=0.50); CALCIUM 8.4 mg/dL (8.4-10.1); CREATININE 1.1 mg/dL (0.7-1.3); EST CRCL DRUG DOSING (CG) 49.33 mL/min
[2025-05-02 08:17] LABS: BASOPHILS ABSOLUTE AUTO 0.02 10^3/uL (0.00-0.50); BASOPHILS PERCENT AUTO 0.3 % (0-1); EOSINOPHILS ABSOLUTE AUTO 0.41 10^3/uL (0.00-1.50); EOSINOPHILS PERCENT AUTO 5.4 % (0-6); HEMATOCRIT 40.4 % (42.0-52.0); HEMOGLOBIN 13.5 g/dL (14.0-18.0); IMMATURE GRAN ABSOLUTE AUTO 0.04 10^3/uL (0.00-0.49); IMMATURE GRAN PERCENT AUTO 0.5 % (0.0-4.9); LYMPHOCYTES ABSOLUTE AUTO 0.68 10^3/uL (0.60-5.00); MEAN CORPUSCULAR HEMOGLOBIN 30.5 pg (27.0-32.0); MEAN CORPUSCULAR HGB CONC 33.4 g/dL (32.0-36.0); MEAN CORPUSCULAR VOLUME 91.4 fL (83.0-97.0); MONOCYTES ABSOLUTE AUTO 1.18 10^3/uL (0.00-1.50); MONOCYTES PERCENT AUTO 15.6 % (0-10); NEUTROPHILS ABSOLUTE AUTO 5.23 x10^3/uL (1.80-8.00); NEUTROPHILS PERCENT AUTO 69.2 % (41-71); PLATELET COUNT,PLT 141 10^3/uL (150-400); RED BLOOD CELL COUNT 4.42 x10^6/uL (4.50-6.00); WHITE BLOOD CELL COUNT,WBC 7.6 10^3/uL (4.0-11.0)
== END 2025-05-02 10:30 | disposition swing bed (61) | DRG 603 ==
LOC: UNDOADMIN 10:25 → CC.MS 10:25
PROVIDERS: ADMIT Physician Assistant Medical; ATTEND Physician Assistant Medical
DX: L03.115 Cellulitis of right lower limb (principal); N17.9 Acute kidney failure, unspecified; E78.00 Pure hypercholesterolemia, unspecified; I10 Essential (primary) hypertension; J45.909 Unspecified asthma, uncomplicated; Z85.46 Personal history of malignant neoplasm of prostate; Z98.49 Cataract extraction status, unspecified eye; Z88.1 Allergy status to other antibiotic agents; Z88.0 Allergy status to penicillin; Z88.8 Allergy status to other drugs, medicaments and biological substances; Z79.899 Other long term (current) drug therapy; Z79.82 Long term (current) use of aspirin; Z79.02 Long term (current) use of antithrombotics/antiplatelets; Z90.79 Acquired absence of other genital organ(s); Z90.89 Acquired absence of other organs
CPT/HCPCS: 36415; 80053; 80202; 83605; 85025; 86140; 87040; 87070; 93971-RT; 99223; 99232; 99233; 99239; A9270-GY; J0690; J1650; J3372; J7030

== ENCOUNTER 2025-05-02 10:34 | Inpatient (IN) | payer MEDICARE, BC ==
[2025-05-02] MEDS ORDERED: Ondansetron 4 MG/2 ML SDV IV PRN (10:53)
[2025-05-02] MEDS ORDERED: Sodium Chloride 0.9% 10 ML Syringe FLUSH PRN ×2 (10:53)
[2025-05-02] MEDS ORDERED: Meclizine 12.5 MG Tab PO PRN (10:53)
[2025-05-02] MEDS ORDERED: Ondansetron 4 MG Tab.DIS PO PRN (10:53)
[2025-05-02] MEDS: VANCOmycin 1.5 GM/300 ML 1.5 GM in Premix Bag 1 BAG IV SCH (11:45)
[2025-05-02] MEDS: ceFAZolin 2 GM Vial IVPUSH SCH (11:45)
[2025-05-02] MEDS: Nystatin Crm 30 GM Tube TOP SCH (14:17)
[2025-05-02] MEDS: Enoxaparin 40 MG/0.4 ML Syringe SUBCUT SCH (19:50)
[2025-05-02] MEDS: atorvaSTATin 20 MG Tab PO SCH (19:50)
[2025-05-02] MEDS: Trospium 20 MG Tab PO SCH (19:57)
[2025-05-02] MEDS: Sucralfate 1 GM Tab PO SCH (20:01)
[2025-05-03] MEDS: Potassium Chloride 20 MEQ Tab.ER PO SCH (07:22)
[2025-05-03] MEDS: Lactobacillus Rhamnosus GG (Probiotic) Cap PO SCH (07:23)
[2025-05-03] MEDS: Metoprolol Succinate 100 MG Tab.ER PO SCH (07:23)
[2025-05-03] MEDS: Fluconazole 100 MG Tab PO SCH (07:24)
[2025-05-03] MEDS: Clopidogrel 75 MG Tab PO SCH (07:25)
[2025-05-03] MEDS: Donepezil 5 MG Tab PO SCH (07:25)
[2025-05-03] MEDS: Furosemide 40 MG Tab PO SCH (07:25)
[2025-05-03] MEDS: Aspirin 81 MG Tab.EC PO SCH (07:26)
[2025-05-03 07:33] LABS: BASOPHILS ABSOLUTE AUTO 0.02 10^3/uL (0.00-0.50); BASOPHILS PERCENT AUTO 0.2 % (0-1); EOSINOPHILS ABSOLUTE AUTO 0.29 10^3/uL (0.00-1.50); EOSINOPHILS PERCENT AUTO 3.3 % (0-6); IMMATURE GRAN ABSOLUTE AUTO 0.05 10^3/uL (0.00-0.49); IMMATURE GRAN PERCENT AUTO 0.6 % (0.0-4.9); LYMPHOCYTES ABSOLUTE AUTO 0.69 10^3/uL (0.60-5.00); LYMPHOCYTES PERCENT AUTO 7.8 % (24-44); MEAN CORPUSCULAR HEMOGLOBIN 30.8 pg (27.0-32.0); MEAN CORPUSCULAR HGB CONC 34.2 g/dL (32.0-36.0); MONOCYTES ABSOLUTE AUTO 1.24 10^3/uL (0.00-1.50); NEUTROPHILS ABSOLUTE AUTO 6.58 x10^3/uL (1.80-8.00); NEUTROPHILS PERCENT AUTO 74.1 % (41-71); PLATELET COUNT,PLT 164 10^3/uL (150-400); RED BLOOD CELL COUNT 4.22 x10^6/uL (4.50-6.00); WHITE BLOOD CELL COUNT,WBC 8.9 10^3/uL (4.0-11.0)
[2025-05-03 07:43] LABS: ALANINE AMINOTRANSFERASE,ALT 21 U/L (12-78); ALBUMIN 2.4 g/dL (3.4-5.0); ALKALINE PHOSPHATASE 87 U/L (46-116); ASPARTATE AMNIOTRANSFERASE,AST 33 U/L (15-37); BILIRUBIN TOTAL 0.6 mg/dL (0.0-1.0); BLOOD UREA NITROGEN,BUN 9 mg/dL (7-18); C-REACTIVE PROTEIN 7.52 mg/dL (<=0.50); CALCIUM 8.4 mg/dL (8.4-10.1); CARBON DIOXIDE,CO2 27 mmol/L (21-32); CHLORIDE,CL 102 mEq/L (98-106); CREATININE 1.1 mg/dL (0.7-1.3); ESTIMATED GFR 70 mL/min (>=60); GLUCOSE RANDOM 89 mg/dL (75-99); POTASSIUM,K 3.6 mEq/L (3.5-5.0); SODIUM,NA 138 mEq/L (136-145)
[2025-05-03] MEDS: Acetaminophen 325 MG Tab PO PRN (19:21)
[2025-05-04] MEDS: Diclofenac Sodium 1% Gel 100 GM Tube TOP PRN (18:00)
[2025-05-05] MEDS ORDERED: Nystatin Crm 30 GM Tube TOP PRN (19:03)
[2025-05-06 07:31] LABS: ALBUMIN 2.5 g/dL (3.4-5.0); BILIRUBIN TOTAL 0.6 mg/dL (0.0-1.0); CALCIUM 9.1 mg/dL (8.4-10.1); CREATININE 1.1 mg/dL (0.7-1.3); EST CRCL DRUG DOSING (CG) 60.83 mL/min; POTASSIUM,K 4.1 mEq/L (3.5-5.0); PROTEIN TOTAL,TP 6.5 g/dL (6.4-8.2)
[2025-05-06 07:43] LABS: BASOPHILS ABSOLUTE AUTO 0.04 10^3/uL (0.00-0.50); BASOPHILS PERCENT AUTO 0.5 % (0-1); EOSINOPHILS PERCENT AUTO 6.1 % (0-6); HEMATOCRIT 38.9 % (42.0-52.0); HEMOGLOBIN 13.1 g/dL (14.0-18.0); IMMATURE GRAN ABSOLUTE AUTO 0.24 10^3/uL (0.00-0.49); IMMATURE GRAN PERCENT AUTO 2.9 % (0.0-4.9); LYMPHOCYTES ABSOLUTE AUTO 0.95 10^3/uL (0.60-5.00); LYMPHOCYTES PERCENT AUTO 11.5 % (24-44); MEAN CORPUSCULAR HEMOGLOBIN 30.6 pg (27.0-32.0); MEAN CORPUSCULAR HGB CONC 33.7 g/dL (32.0-36.0); MEAN CORPUSCULAR VOLUME 90.9 fL (83.0-97.0); MONOCYTES ABSOLUTE AUTO 0.98 10^3/uL (0.00-1.50); MONOCYTES PERCENT AUTO 11.9 % (0-10); NEUTROPHILS ABSOLUTE AUTO 5.54 x10^3/uL (1.80-8.00); NEUTROPHILS PERCENT AUTO 67.1 % (41-71); PLATELET COUNT,PLT 333 10^3/uL (150-400); RED BLOOD CELL COUNT 4.28 x10^6/uL (4.50-6.00); WHITE BLOOD CELL COUNT,WBC 8.3 10^3/uL (4.0-11.0)
[2025-05-06 10:53] LABS: C-REACTIVE PROTEIN 4.12 mg/dL (<=0.50)
[2025-05-07 07:33] VITALS: BP 121/70; PULSE 82
== END 2025-05-07 10:30 | disposition home or self-care (01) | DRG 603 ==
LOC: CC.MS 10:39 → UNDOADMIN 10:39 → CC.MS 11:03
PROVIDERS: ADMIT Physician Assistant Medical; ATTEND Physician Assistant Medical
DX: L03.115 Cellulitis of right lower limb (principal); R53.81 Other malaise; Z79.82 Long term (current) use of aspirin; Z79.02 Long term (current) use of antithrombotics/antiplatelets; Z79.899 Other long term (current) drug therapy
CPT/HCPCS: 36415; 80053; 80202; 85025; 86140; 97110-GP; 97161-GP; A9270-GY; J0690; J1650; J3372